=== PATIENT | male | born 1995 | race Caucasian/White ===

== ENCOUNTER 2024-09-29 06:47 | Day surgery (SDC) | payer BC ==
[2024-09-29] MEDS: Lactated Ringers 1,000 ML IV SCH (07:06)
[2024-09-29] MEDS ORDERED: fentaNYL 100 MCG/2 ML SDV ONE (07:52)
[2024-09-29] MEDS ORDERED: Propofol 200 MG/20 ML SDV ONE ×2 (07:52→09:02)
== END 2024-09-29 10:30 | disposition home or self-care (01) ==
LOC: VM.SDS 06:47
PROVIDERS: ATTEND Student in an Organized Health Care Education/Training Program
DX: Z12.11 Encounter for screening for malignant neoplasm of colon (principal); D12.3 Benign neoplasm of transverse colon; G43.909 Migraine, unspecified, not intractable, without status migrainosus; Z80.0 Family history of malignant neoplasm of digestive organs; Z79.899 Other long term (current) drug therapy
CPT/HCPCS: 00811; J2704; J3010; J7120